=== PATIENT | female | born 1985 | race Caucasian/White ===

== ENCOUNTER 2022-08-20 09:18 | Outpatient (CLI) | payer BC, SELFPAY ==
--- NOTE | ~2022-08-20 | US_ITS ---
EXAMINATION: US OB <= 14 weeks fetus DATE: 08/20/2022 09:38 INDICATION: with inconclusive viability. TECHNIQUE: Real-time transabdominal pelvic ultrasound was performed. COMPARISON: None. FINDINGS: The uterus measures 11.9 x 6.8 x 8.9 cm. There is an intrauterine gestational sac. A yolk sac is iden tified. The crown rump length measures 4.2 cm, which correlates with an estimated gestational age of 11 weeks and 1 day(s) (+/-) 1 week(s) and 0 day(s). heart motion is identified measuring 169 beats per minute (bpm) by M-mode Doppler. There is a small subchorionic hematoma. The right ovar y measures 3.3 x 1.6 x 2.7 cm. The left ovary measures 3.5 x 2.0 x 2.9 cm. There is no free fluid in the pelvis. IMPRESSION: 1. Single living intrauterine gestation with estimated date of delivery of 03/10/2023. 2. Small subchorionic hematoma. Reviewed, dictated and finalized at location A. IMPRESSION: 1. Single living intrauterine gestation with estimated date of delivery of . 2. Small subchorionic hematoma.
== END 2022-08-20 09:19 ==
PROVIDERS: Visit Provider Registered Nurse
DX: O36.80X0 Pregnancy with inconclusive fetal viability, not applicable or unspecified (principal); Z3A.00 Weeks of gestation of pregnancy not specified
CPT/HCPCS: 76801

== ENCOUNTER 2022-12-28 15:01 | Outpatient (RCR) | payer BC, SELFPAY ==
[2022-12-29] MEDS: RHO(D) IMMUNE GLOBULIN 300 MCG/2 ML SYRINGE IM (17:43)
== END 2023-03-28 23:59 | disposition home or self-care (01) ==
LOC: ANHLAB 15:01
PROVIDERS: Visit Provider Obstetrics & Gynecology
DX: Z29.13 Encounter for prophylactic Rho(D) immune globulin (principal); O09.529 Supervision of elderly multigravida, unspecified trimester; O36.0190 Maternal care for anti-D [Rh] antibodies, unspecified trimester, not applicable or unspecified; Z3A.00 Weeks of gestation of pregnancy not specified
CPT/HCPCS: 36415; 85461; 86850; 86900; 86901; 90384; 96372; J2790

== ENCOUNTER 2023-02-22 16:00 | Outpatient (RCR) | payer BC, SELFPAY ==
--- NOTE | ~2023-02-22 | US_ITS ---
EXAMINATION: US OB BPP wo non-stress DATE: 02/22/2023 17:20 INDICATION: Low baseline tracing. Third trimester. TECHNIQUE: Real-time pelvic ultrasound was performed. COMPARISON: None. FINDINGS: There is a single living fetus in vertex presentation. The placenta is anterior. heart rate is 130 beats per minute (bpm). Biophysical profile performed by the technologist: breathing (30 sec sustained breathing in 30 minutes): 2 out of 2 movement (3 gross body movements in 30 minutes): 2 out of 2 tone (one episode of clcmwzz-dvtnkwieh-tayglrm limb movement): 2 out of 2 Amniotic fluid pocket (2 cm): 2 out of 2 Total score: 8 out of 8 IMPRESSION: 1. Single living fetus in vertex presentation. 2. Biophysical profile 8 out of 8. Reviewed, dictated and finalized at location A. SETTER
[2023-02-22 17:15] VITALS: BP 124/79; PULSE 68
== END 2023-05-23 23:59 | disposition home or self-care (01) ==
LOC: ANHOBOP 16:00
PROVIDERS: Visit Provider Obstetrics & Gynecology
DX: O36.8330 Maternal care for abnormalities of the fetal heart rate or rhythm, third trimester, not applicable or unspecified (principal); Z3A.37 37 weeks gestation of pregnancy
CPT/HCPCS: 59025; 76819

== ENCOUNTER 2023-03-08 11:38 | Outpatient (CLI) | payer BC, SELFPAY ==
[2023-03-08 12:07] LABS: Hematocrit 39.7 % (37.0-47.0); Hemoglobin 12.8 g/dL (12.0-15.0); Mean Corpuscular HGB Conc 32.2 g/dl (32-36); Mean Corpuscular Hemoglobin 31.2 pg (26-34); Mean Corpuscular Volume 96.8 fl (80-100); Mean Platelet Volume 10.8 fl (7.4-10.4); Platelet Count Result 159 k/mm3 (150-375); Red Cell Distribution Width 14.8 % (11.5-14.5); White Blood Count 10.3 K/mm3 (4.5-10.0)
[2023-03-09 14:03] LABS: Rapid Plasma Reagin Non-Reactive (NonReactive)
== END 2023-03-08 11:39 | disposition home or self-care (01) ==
LOC: ANHLAB 11:40
PROVIDERS: Visit Provider Obstetrics & Gynecology
DX: Z01.818 Encounter for other preprocedural examination (principal)
CPT/HCPCS: 36415; 85027; 86592; 86850; 86880; 86900; 86901

== ENCOUNTER 2023-03-09 05:29 | Inpatient (IN) | payer BC, SELFPAY ==
[2023-03-09] VITALS (49 sets, daily range): BP systolic 76–117; BP diastolic 14–85; PULSE 47–151; RESP 12–18; TEMP 36.6–37.3; O2SAT 97–100; BMI 34.9; BMI 34.2
--- OUTSIDE RECORDS SUMMARY | 2023-03-09 05:34 | XMS_ITS | Patient Health Record ---
Author Name Unknown Organization [facility] Address [address] [place] [address] Care Team Providers Care Bit Tripoler Name Role Phone Arden Vega DO Primary Care Provider Unavailab elizabeth UNDERWOOD MD, [place] Unavailable REASON FOR REFERRAL No Information SOCIAL HISTORY Sex Assigned At : Social History Observation Description Sex Assigned At Unknown PLAN OF TREATMENT Pending Test Test Name Order Date Colonoscopy 01/05/2019 Insurance Providers Payer Name Payer Address Payer Phone Subscriber Number Group Number Insured Name Patient Relationship to Insured Coverage Start Date Coverage End Date [facility] [address] [place], [place] [id number] Shima Stewart Self - patient is the insured
[2023-03-09] MEDS: LACTATED RINGERS 1,000 ML 125 ML IV CONT (06:24)
--- NOTE | 2023-03-09 06:37 | LDADM ---
This patient, Shima Stewart, was admitted to Labor/Delivery/Recovery 120 on 03/09/23 at 05:29. Plans for c section, pain management and were discussed with patient. Patient/family oriented to hospital policies and general routines including ID bracelet, bed and alarms, visiting hours, pain management, procedures, bathroom and other care routines, personal items, smoking policy, room service/diet and guest tray routines, infant security routines, and visiting hours. Patient/Family are encouraged to report perceived risks to care and to ask questions if they do not understand what they are told or what they should do. See OBIX for further documentation.
--- NOTE | 2023-03-09 07:13 | P.HP_ITS ---
Exam Const: General: no acute distress Eyes: General: appearance normal, both eyes and all related structures Resp: Effort & Inspection: normal respiratory effort Cardio: Rate: regular rate GI: Other: Gravid no fundal tenderness no right upper quadrant pain Skin: General skin exam: no rashes or lesions noted Neuro: Cognition (Neuro): normal cognition Extrem: General: normal to inspection Psych: Mental Status: mental status grossly normal Assessment and Plan Assessment and plan (1) Previous section: Code(s): Z98.891 - History of uterine scar from previous surgery Status: Acute Assessment and Plan: Admit. Will proceed with repeat section. H&P: HPI History of Present Illness Date/Time: 03/09/23 07:13 Chief Complaint: Repeat cesearean section Narrative: She is a at 39 weeks admitted for repeat section. course significant for prior and prior and she has opted for repeat section. She has been counseled regarding risk benefits of DELMA versus repeat seciton. Labs reviewed. GBS positive. Review of Systems Review of Systems: All systems reviewed & are unremarkable except as noted in HPI and below Constitutional: Constitutional: Reports no additional constitutional complaints and Denies headache(s) Eyes: Eyes: Denies spots in vision ENT: Reports system reviewed and no additional complaints, except as documented and Denies headache(s) Cardiovascular: Cardiovascular: Denies chest pain and Denies dyspnea Respiratory: Respiratory: Denies dyspnea Gastrointestinal: Gastrointestinal: Reports no additional gastrointestinal complaints Genitourinary: Genitourinary: Reports amenorrhea Musculoskeletal: Musculoskeletal: Reports no additional musculoskeletal complaints Integumentary/Breasts: Skin/Breast: Denies breast mass and Denies rash Neurologic: Denies headache(s) Psychiatric: Psychiatric: Reports no additional psychiatric complaints [facility] Past Medical History Medical History Advanced maternal age in multigravida Asthma (vaginal after ) Surgical History Surgical History (Updated 03/09/23 @ 07:18 by Abraham Desir MD) History of placement of ear tubes Previous section Family History Family History Father Carcinoma of colon Grandparent Family history of malignant neoplasm of breast Mother A-fib Social History Social History Smoking status: Never smoker Second hand tobacco smoke exposure: No Alcohol intake: current Substance use: never Substance use type: does not use Do You Feel Safe in your Home?: Yes Lack of Transportation: No Lack of Food: Never True Current Housing: I Have Housing Concerned About Future Housing: No Difficulty Paying Gas/Electric Bills: No Difficulty Paying for Meds: No Currently Unemployed: No Education: Master's Degree or Higher Difficulty w/ Childcare or Family Care: No Living arrangements: with family Occupation/Education: occupation Gender identity (if verbalized by the patient): Female Sexual Orientation (if Verbalized by the Patient):
--- NOTE | 2023-03-09 07:13 | PM.IMHP ---
H&P: HPI History of Present Illness Date/Time: 03/09/23 07:13 Chief Complaint: Repeat cesearean section Narrative: She is a at 39 weeks admitted for repeat section. course significant for prior and prior and she has opted for repeat section. She has been counseled regarding risk benefits of DELMA versus repeat seciton. Labs reviewed. GBS positive. Review of Systems Review of Systems: All systems reviewed & are unremarkable except as noted in HPI and below Constitutional: Constitutional: Reports no additional constitutional complaints and Denies headache(s) Eyes: Eyes: Denies spots in vision ENT: Reports system reviewed and no additional complaints, except as documented and Denies headache(s) Cardiovascular: Cardiovascular: Denies chest pain and Denies dyspnea Respiratory: Respiratory: Denies dyspnea Gastrointestinal: Gastrointestinal: Reports no additional gastrointestinal complaints Genitourinary: Genitourinary: Reports amenorrhea Musculoskeletal: Musculoskeletal: Reports no additional musculoskeletal complaints Integumentary/Breasts: Skin/Breast: Denies breast mass and Denies rash Neurologic: Denies headache(s) Psychiatric: Psychiatric: Reports no additional psychiatric complaints PMF Past Medical History Medical History Advanced maternal age in multigravida Asthma (vaginal after ) Surgical History Surgical History (Updated 03/09/23 @ 07:18 by Abraham Desir MD) History of placement of ear tubes Previous section Family History Family History Father Carcinoma of colon Grandparent Family history of malignant neoplasm of breast Mother A-fib Social History Social History Smoking status: Never smoker Second hand tobacco smoke exposure: No Alcohol intake: current Substance use: never Substance use type: does not use Do You Feel Safe in your Home?: Yes Lack of Transportation: No Lack of Food: Never True Current Housing: I Have Housing Concerned About Future Housing: No Difficulty Paying Gas/Electric Bills: No Difficulty Paying for Meds: No Currently Unemployed: No Education: Master's Degree or Higher Difficulty w/ Childcare or Family Care: No Living arrangements: with family Occupation/Education: occupation Gender identity (if verbalized by the patient): Female Sexual Orientation (if Verbalized by the Patient): Straight or Heterosexual Spiritual care concerns: No Meds Home Medications and Allergies Home Medications Medication Instructions Recorded Confirmed Type albuterol sulfate 90 mcg/actuation 1 inh inhalation Q4H PRN shortness 08/18/22 03/09/23 Rx aerosol inhaler of breath or wheezing #6.7 grams prenat.vits,vida,ykm-lqro-bcoza 1 tablet PO DAILY 08/18/22 02/14/23 History aspirin 81 mg tablet,delayed 81 mg PO DAILY 01/25/23 02/14/23 History release (Adult Low Dose Aspirin) cholecalciferol (vitamin D3) 50 50 mcg PO DAILY 01/25/23 02/14/23 History mcg (2,000 unit) capsule iron,carbonyl 100 mg-vitamin C 250 1 tablet PO DAILY 01/25/23 02/14/23 History mg tablet Allergies Allergy/AdvReac Type Severity Reaction Status Date / Time Sulfa (Sulfonamide Allergy Intermediate Hives / Verified 03/09/23 06:28 Antibiotics) Red Face cefaclor Allergy Unknown Unknown Verified 03/09/23 06:28 Cephalosporins Allergy Unknown Unknown Verified 03/09/23 06:28 erythromycin base Allergy Unknown Unknown Verified 03/09/23 06:28 sulfanilamide Allergy Unknown Unknown Verified 03/09/23 06:28 sulfisoxazole Allergy Unknown Unknown Verified 03/09/23 06:28 Vital Signs Vital Signs - 24 hr 03/09/23 06:21 03/09/23 06:33 Pulse Rate 76 Blood Pressure 117/85 Oxygen Delivery Room Air Exam Const:
--- NOTE | 2023-03-09 07:17 | WPDANESEPPF ---
Anes - Initial Pre Proc Eval Procedure: Operation Date: 03/09/23 07:30 Proposed Procedures p Repeat Section - Abraham Desir MD Date/Time: 03/09/23 07:17 Surgeon: Abraham Desir MD Pre Op Diagnosis: C/S Patient Data Age: 37 Gender: F Height: 1.64 m Weight: 92 kg Last Vital Signs Pulse 76 03/09/23 06:21 BP 117/85 03/09/23 06:21 O2 Del Method Room Air 03/09/23 06:33 Allergies Allergy/AdvReac Type Severity Reaction Status Date / Time Sulfa (Sulfonamide Allergy Intermediate Hives / Verified 03/09/23 06:28 Antibiotics) Red Face cefaclor Allergy Unknown Unknown Verified 03/09/23 06:28 Cephalosporins Allergy Unknown Unknown Verified 03/09/23 06:28 erythromycin base Allergy Unknown Unknown Verified 03/09/23 06:28 sulfanilamide Allergy Unknown Unknown Verified 03/09/23 06:28 sulfisoxazole Allergy Unknown Unknown Verified 03/09/23 06:28 Home Medications Medication Instructions Recorded Confirmed Type albuterol sulfate 90 mcg/actuation 1 inh inhalation Q4H PRN shortness 08/18/22 03/09/23 Rx aerosol inhaler of breath or wheezing #6.7 grams prenat.vits,vida,qsz-hzad-uiyga 1 tablet PO DAILY 08/18/22 02/14/23 History aspirin 81 mg tablet,delayed 81 mg PO DAILY 01/25/23 02/14/23 History release (Adult Low Dose Aspirin) cholecalciferol (vitamin D3) 50 50 mcg PO DAILY 01/25/23 02/14/23 History mcg (2,000 unit) capsule iron,carbonyl 100 mg-vitamin C 250 1 tablet PO DAILY 01/25/23 02/14/23 History mg tablet Patient hx anesthesia problems: none Family hx anesthesia problems: none Results Review: All pre-operative results and documents have been reviewed as part of the pre-operative evaluation. [facility] Past Medical History Medical History Advanced maternal age in multigravida Asthma (vaginal after ) Surgical History Surgical History History of placement of ear tubes Previous section Family History Family History Father Carcinoma of colon Grandparent Family history of malignant neoplasm of breast Mother A-fib Social History Social History Smoking status: Never smoker Second hand tobacco smoke exposure: No Alcohol intake: current Substance use: never Substance use type: does not use Do You Feel Safe in your Home?: Yes Lack of Transportation: No Lack of Food: Never True Current Housing: I Have Housing Concerned About Future Housing: No Difficulty Paying Gas/Electric Bills: No Difficulty Paying for Meds: No Currently Unemployed: No Education: Master's Degree or Higher Difficulty w/ Childcare or Family Care: No Living arrangements: with family Occupation/Education: occupation Gender identity (if verbalized by the patient): Female Sexual Orientation (if Verbalized by the Patient): Straight or Heterosexual Spiritual care concerns: No Anes - Eval Final PreProcedure Day of Procedure 03/09/23 07:17 Patient weight: obese Heart: regular rate and rhythm Lungs: clear to auscultation Airway: Mallampati scale class II Neurological: alert and oriented Last oral intake: >/= 8 hours ASA classification: II Emergent: no Anesthetic plan: proceed Anesthesia type and monitoring: regional spinal and standard monitoring Results Review: All pre-operative results and documents have been reviewed as part of the pre-operative evaluation. Informed Consent: The patient's anesthetic plan and its attendant risks and benefits were discussed with the patient/family/POA. Questions were solicited and answers provided to the satisfaction of the patient/family/POA.
[2023-03-09] MEDS: CLINDAMYCIN 900 MG/D5W 50 ML 900 MG/50 ML PIGGYBACK 50 MG IVPB (07:18)
--- NOTE | 2023-03-09 07:19 | WPDHPUPDATE1 ---
History and Physical Update Update Date/Time: 03/09/23 07:19 History and Physical has been reviewed, including an updated exam of the patient. There are NO changes in the patient's condition. Risks, benefits, and alternatives have been discussed and questions answered. Patient agrees to proceed with procedure.
[2023-03-09] MEDS: GENTAMICIN SULFATE INJ 460 MG in DEXTROSE 5% 100 ML 100 MG IVPB (07:44)
--- NOTE | 2023-03-09 09:01 | W.PM.OBCSD ---
OB - Delivery Note Procedure Delivery date: 03/09/23 Pre-op diagnosis: Previous Delivery Post-op Diagnosis: Same Delivery monitor: External FHT Procedure Performed: Repeat Surgeon: Abraham Desir MD Anesthesia type: Spinal Description of Procedure/Findings: Findings: Male infant 8lb 7oz normal fallopian tubes and ovaries, in OT position, vacuum assisted After informed consent, risks and benefits of the procedure was discussed with the patient. The patient was taken to the operating room where she was placed in the dorsal lithotomy position with leftward tilt. After the prior placed epidural anesthesia was found to be adequate, she was then prepped and draped in the usual sterile fashion. A Pfannenstiel skin incision was made along prior scar incision with a scalpel and carried through to the underlying layer of fascia. The scar tissue was dissected. The fascia was then nicked in the midline, extending bilaterally. The fascia was dissected off the rectus muscles using cautery, superiorly and inferiorly. The rectus muscles were in the midline, and peritoneum was identified and entered bluntly. The pelvic organs were visualized. The bladder blade was then inserted. The vesicouterine peritoneum was identified and entered sharply with Metzenbaum scissors and extended bilaterally and then the bladder flap was created digitally. The low transverse uterine incision was then made with the scalpel and extended with bilateral index fingers in a crescent-shaped fashion. There was a large amount of clear amniotic fluid. The head was in the OT position and high, needed the vacuum to assist with delivery of head, once head delivered then vacuum released, delivered, the nose and mouth were suctioned with the bulb. the rest of the infant was delivered. The cord was clamped twice and cut. The was then handed off to the awaiting pediatric staff. The placenta was then delivered manually. The uterine cavity was sponge curretted. Good uterine tone. The uterus was then exteriorized. The uterine incision was then closed with 0 vicryl in a running locked fashion. Hemostasis noted. A second layer of 0 vicryl was used in an imbricating fashion. Hemostasis noted, Cul de sac irrigated. The uterus was then returned to the abdomen. Bilateral gutters were cleared off all clots and debris. The uterine incision was noted to be hemostatic. Interceed placed on uterine incision and vertically on front of uterus. The muscle bellies were inspected, there was an area on the right muscle bellies that require cautery and then hemostasis noted. The subfascial layer was noted to be hemostatic, and the fascia was closed with 0 Vicryl in a running fashion. The subcutaneous layer was then closed with 3-0 Vicryl in a subcutaneous fashion. The skin was closed with Ensorb. Skin dermabond applied at incision. All instruments, needle, and lap counts were correct x3. The patient was taken to the recovery room in stable condition. Specimen: No Estimated Blood Loss: 940 Drains: No Packing: No Pathology: None sent Complications: No immediate complications Condition: Stable [place] Baby Date of : 03/09/23 Weeks of gestation at delivery: 39 Infant gender: Male Weight (pounds): 8 Weight (ounces): 7 presentation: vertex position: Right Occiput Transverse Placenta delivery description: Manual Removal Cord Vessel Description: 3 Vessels score one minute: 8 score five minutes: 9 AMG Delivery Billing Delivery Delivery: Delivery Charge
--- NOTE | 2023-03-09 09:15 | PM.OBDSVD ---
DS: Admitting Diagnosis Discharge Date 03/12/23 Admitting Diagnosis Elective repeat section. DS: Discharge Diagnosis Discharge Diagnosis (1) Delivery by section: Status: Acute OB - DS: Summary Hospital Course Hospital Course: She was admitted for elective repeat section. She had an uncomplicated . She did well . She had adequate pain control and was tolerating regular diet. She was discharged to home on Post day 3. OB Procedures : Ultrasound OB Procedures Intrapartum: OB Procedures: : None Peripartum Data Infant Delivery Method: Natural Vaginal Procedures: Procedures Operation Date: 03/09/23 07:30 <No data on this case meets the specified criteria> complications: none Status at Discharge Functional status at discharge: independent ambulation Time Spent with Patient Time attestation: Total time spent providing and/or coordinating discharge services: Exam Const: General: cooperative Orientation/consciousness: oriented to person, oriented to place and oriented to time HENMT: Face/Nose/Sinus: Normal external nose present Eyes: General: appearance normal, both eyes and all related structures Resp: Effort & Inspection: normal respiratory effort GI: Inspection: normal to inspection Skin: General skin exam: normal color Neuro: General: oriented to person, oriented to place and oriented to time Extrem: General: normal to inspection and no calf tenderness Psych: Appearance: grossly normal Mental Status: mental status grossly normal Discharge Plan Discharge Attending physician on discharge: Daksha Gil Consulting providers: Lars Martel; Clyde Cohen; Denise Cespedes Discharging Clinician: Daksha Gil Anticipated Discharge Date/Time: 03/12/23 12:00 Patient Disposition: Home, Self-Care Activity: may shower, may drive after 2 weeks and pelvic rest Diet: regular Discharge Instructions: Education: Mom and Baby Guide Given to: Mother Follow-Up: Call your delivering provider's office for an appointment to be seen in: 1 Week Mom and baby should come to the [facility] for the follow-up appointment. Appointment Date/Time: March 14, 2023 at 9:00 am What to expect at your follow-up visit: Blood Pressure Check Call [phone] if you are unable to keep your appointment time. BREAST CARE: * Wear a snug supportive bra. * For engorgement discomfort: Breast Feeding: * Apply warm moist washcloths * Express milk as needed to relieve engorgement * Wear loose clothing Bottle Feeding: * May apply ice packs * For sore nipples: * Identify correct latch-on * Apply warm moist washcloths before and after nursing * Air dry nipples after nursing * May apply Lansinoh cream to nipples ABDOMINAL INCISION: (if applicable) * Allow incision to air dry * Do NOT use lotions for powders on your incision * When showering, allow soap and water to run over the incision, but do not wash incision PERINEAL CARE: * Until bleeding stops, use your anel bottle after urinating * Change your pad frequently throughout the day * You may take sitz baths several times a day (fill your bathtub with warm water and soak for 20 minutes.) Do NOT bathe in the water * No tub baths until seen by your physician - You may shower ACTIVITY: * Rest as much as possible. * Do not exercise or lift anything heavier than your baby (such as laundry or other children.) * Avoid stairs or driving as much as possible. * Do not put anything into the vagina. No douching, tampons, or sexual activity until seen by physician. NOTIFY PHYSICIAN IF YOU HAVE ANY QUESTIONS OR IF ANY OF THE FOLLOWING SYMPTOMS OCCUR: * If your incision becomes red, swollen, or more painful than what you have experienced in the hosp
[2023-03-09] MEDS: KETOROLAC 30 MG/ML VIAL (*BKC) IV PUSH ×2 (09:40→13:35)
[2023-03-09] MEDS: OXYTOCIN 30 UNITS/NS 500 ML 30 UNITS/500 ML BAG 125 UNITS IV CONT (09:43)
[2023-03-09] MEDS: SCOPOLAMINE 1 MG PATCH 1 PATCH TRANSDERM (15:00)
[2023-03-09] MEDS: METOCLOPRAMIDE HCL INJ 10 MG/2 ML VIAL IV PUSH (15:00)
[2023-03-09] MEDS: LIDOCAINE 5% PATCH 1 PATCH TRANSDERM (15:00)
[2023-03-10] MEDS: HYDROcodone/acetaminophen (*CRX) 5-325 MG TABLET 1 TAB PO ×3 (02:33→19:58)
[2023-03-10] MEDS: IBUPROFEN 600 MG TABLET PO ×4 (02:33→19:58)
[2023-03-10 04:30] VITALS: BP 87/44; PULSE 49; RESP 16; TEMP 36.4
[2023-03-10 06:27] LABS: Basophils Absolute Auto 0.1 K/mm3 (0.0-0.1); Basophils Percent Auto 0.4 % (0.2-1.2); Eosinophils Absolute Auto 0.2 K/mm3 (0-0.3); Eosinophils Percent Auto 1.5 % (0-4.4); Hematocrit 32.9 % (37.0-47.0); Hemoglobin 10.5 g/dL (12.0-15.0); Immature Granulocyte Absolute 0.08 K/mm3 (0.00-0.031); Immature Granulocyte Percent A 0.7 % (0-0.5); Lymphocytes Absolute Auto 1.83 K/mm3 (0.9-3.2); Lymphocytes Percent Auto 15.6 % (18.3-44.2); Mean Corpuscular HGB Conc 31.9 g/dl (32-36); Mean Corpuscular Hemoglobin 31.5 pg (26-34); Mean Corpuscular Volume 98.8 fl (80-100); Mean Platelet Volume 11.6 fl (7.4-10.4); Monocytes Absolute Auto 0.9 K/mm3 (0.1-0.6); Monocytes Percent Auto 7.8 % (2.6-8.5); Neutrophils Absolute Auto 8.7 K/mm3 (1.3-6.7); Platelet Count Result 149 k/mm3 (150-375); Red Blood Count 3.33 M/mm3 (4.2-5.4); Red Cell Distribution Width 14.9 % (11.5-14.5); White Blood Count 11.7 K/mm3 (4.5-10.0)
--- NOTE | 2023-03-10 07:47 | PM.OBPNVD ---
OB - PN: Subj Subjective Date/time seen: 03/10/23 07:47 Patient comments: no complaints, pain well controlled, tolerating diet and flatus present OB - PN: Obj Data Labs 03/10/23 04:39 Labs: Laboratory Results - last 24 hr 03/10/23 04:39 WBC 11.7 H RBC 3.33 L Hgb 10.5 L Hct 32.9 L MCV 98.8 MCH 31.5 MCHC 31.9 L RDW 14.9 H Plt Count 149 L MPV 11.6 H Immature Gran % (Auto) 0.7 H Neut % (Auto) 74.0 H Lymph % (Auto) 15.6 L Delta % (Auto) 7.8 Eos % (Auto) 1.5 Baso % (Auto) 0.4 Lymph # (Auto) 1.83 Delta # (Auto) 0.9 H Eos # (Auto) 0.2 Baso # (Auto) 0.1 Abs Immat Gran (auto) 0.08 H Absolute Neuts (auto) 8.7 H Absolute Nucleated RBC 0.0 Nucleated RBC % 0.0 OB - PN A/P Plan day: 1 Plan: routine care Comments: patient doing well H/H stable afebrile, VSS incision C/D/I estrada removed, voiding spontaneously continue routine post op care pt desires infant circumcision. risks, benefits, alternatives discussed. Plan for infant circumcision this morning. Time Spent With Patient Time: Total time spent is greater than 50% in coordination of care (as documented) at patient's floor/unit and/or counseling patient: Time with patient: less than 15 minutes Review of Systems Constitutional: Constitutional: Reports no additional constitutional complaints Cardiovascular: Cardiovascular: Reports no additional cardiovascular complaints Respiratory: Respiratory: Reports no additional respiratory complaints Gastrointestinal: Gastrointestinal: Reports no additional gastrointestinal complaints Genitourinary: Genitourinary: Reports no additional female genitourinary complaints Exam Const: General: comfortable and no acute distress Resp: Effort & Inspection: normal respiratory effort Auscultation: clear to auscultation bilaterally Cardio: Rate: regular rate GI: GI Palp: Yes Soft to palpation, Yes Tenderness to palpation present (GI) (around incision ) and No Guarding due to palpation present (GI) Auscultation: normal bowel sounds Other: incision C/D/I, covered with Dermabond Psych: Appearance: grossly normal Mental Status: mental status grossly normal Affect: normal affect
[2023-03-10 08:21] VITALS: BP 87/44; PULSE 51; RESP 18; TEMP 36.4; O2SAT 98
[2023-03-10] MEDS: SIMETHICONE 80 MG TAB.CHEW PO ×3 (09:00→23:50)
[2023-03-10] MEDS: MULTIVIT/MIN/PREN/FOL AC/IRON TABLET 1 TAB PO (09:00)
[2023-03-10] MEDS: DOCUSATE SODIUM 100 MG CAPSULE PO ×2 (09:00→17:00)
[2023-03-10 09:50] VITALS: BP 100/68
--- NOTE | 2023-03-10 09:59 | WPDANLDNPN2 ---
Anes-Prog Note L&D-Neuraxial Date/Time: 03/10/23 09:59 Neuraxial medications: intrathecal PF morphine Opiod-related complaints: pruritis mild, no treatment Patient feedback: Patient satisfied with post-operative pain management.
--- NOTE | 2023-03-10 10:00 | WPDANLDPN2 ---
Anes-Prog Note L&D Date/Time: 03/10/23 10:00 Comfortable throughout: section Neuraxial method: spinal Epidural/Spinal procedure site: clean & non-tender Neuro status: Neuro function grossly intact. Cardiovascular status: normal Respiratory status: normal Airway patency: baseline Mental status: baseline Post-Op hydration status: normal Vital Signs: Last Vital Signs Temp 36.4 C 03/10/23 08:21 Pulse 51 L 03/10/23 08:21 Resp 18 03/10/23 08:21 BP 100/68 03/10/23 09:50 Pulse Ox 98 03/10/23 08:21 O2 Del Method Room Air 03/09/23 17:06 Pain score (VAS): 3/10 I/O: Intake & Output 03/09/23 03/10/23 03/10/23 23:59 07:59 15:59 Intake Total 500 500 Output Total 1050 1500 900 Balance -550 -1000 -900 Post-procedural complaints: none Patient feedback: Patient satisfied with anesthetic care.
--- NOTE | 2023-03-10 10:31 | PC.NURSE ---
[id number] Introductions were made, then consulted with patient to assess needs related to . Mother led the conversation with her?plans to feed?her infant, the?experience so far along with her history. Mother had a crease injury on the right nipple and a pinched injury at the top of the left nipple. Encouraged understanding of the benefits of skin to skin (demonstrating unwrapping infant and placing upright on her chest), stimulating with massage touch, changing positions to encourage wakefulness, how to watch for early feeding cues, responsive feeding, feeding on demand (aiming for 8-12 times in 24 hours, about every 2-3 hours), milk production, building/maintaining a milk supply, duration of feeding, signs of adequate intake/output and how to record on the feeding sheet. Infant is sleepy and reluctant to wake up after the circumcision and oral medication. Mother works well with her with encouragement and education. LC was able to stimulate, burp and change positions of to stimulate for wakefulness to breastfeed. Reviewed positioning and ear, shoulder, hip alignment, supporting the breast to facilitate a deep latch, asymmetrical latch (off-center), leading with the chin with a big, open, wide gape and body close to mother. latched optimally to the left breast in football position. Education given to the mother of how to visualize the suckling (with good rocking jaw motion), swallows (dropping of the lower jaw) and how to listen for drinking at the breast (the ka sound). Infant was able to maintain latch without pain to mother protecting the nipple with optimal positioning and latching. self-detached without misshaping the nipple. Reviewed comfort measures of healing with a warm, wet washcloth to rinse breast, then leave open to air-dry, good handwashing when or touching the breast/nipples to prevent infection. Mother voiced understanding of skin to skin, stimulating with massage touch, responsive feedings, hand expressed colostrum, talking to to encourage if it has been 2 -2.5 hours since the start of the last , to call if infant does not latch, or if there is discomfort with . Resources used for education were facilitated with the mom and baby guide. Inpatient/outpatient resources provided with name written on the communication board. Parents voiced understanding of information, demonstrated learning and will call if there is a request for assistance. Reported to the Primary RN.
--- NOTE | 2023-03-10 14:02 | PC.NURSE ---
[id number] Consulted with patient to assess needs related to after requested. Discussed with mother her successes, concerns and any questions she has. We reviewed working with the infant, supporting breast, protecting her nipples with an optimal deep latch, good positioning, and good hand washing. Encouraged understanding the benefits of skin to skin, responding to feeding cues, frequencies of feeding 8-12 times in 24 hours (approximately 2-3 hours), duration of feedings, milk production, intake/output feeding sheet and signs of adequate intake encouraging swallowing at the breast. Reviewed positioning and alignment, supporting breast, off-centered (asymmetrical latch) and leading with the chin with big, open, wide gape. Infant latched optimally to the right breast in football position. Mother states the latch is slightly pinchy with a rating of 2 on scale 0-10. has nice rounded cheek line, flanged lips, good rocking jaw motion, wiggling in front of the ears, and swallowing at times. Education given to the mother of how to visualize the suckling (with good rocking jaw motion) swallows (dropping of the lower jaw) and how to listen for drinking at the breast (the ka sound). Mother was shown detaching infant from the breast after 10 minutes related to the pinching discomfort. The nipple was slightly misshaped with slanting. Recommended to mother to rotate breast and positioning while working with on the optimal latch. placed [id number], then after feeding cues were observed infant was effectively latched to the left breast using the football positioning. The was able to maintain latch without discomfort to mother and demonstrated swallowing. Nipple care reviewed with optimal latch, good positioning and using clean hands when touching her breast. Resources used to facilitate learning were used from the [visual handouts/ tool/mom and baby guide]. Mother voiced understanding of the education shared, to call for assistance if the infant does not latch or if there is discomfort with . Reported to the Primary RN.
[2023-03-10] MEDS: RHO(D) IMMUNE GLOBULIN 300 MCG/2 ML SYRINGE IM (14:21)
[2023-03-10] MEDS: LIDOCAINE 5% PATCH 1 PATCH TRANSDERM (14:23)
[2023-03-10 17:22] VITALS: BP 102/72; PULSE 62; RESP 16; O2SAT 100
[2023-03-10 19:40] VITALS: BP 102/55; PULSE 59; RESP 16; TEMP 36.8
[2023-03-10] MEDS: HYDROcodone/acetaminophen (*CRX) 10-325 MG TABLET 1 TAB PO (23:50)
[2023-03-11] MEDS: IBUPROFEN 600 MG TABLET PO ×3 (03:36→20:20)
[2023-03-11] MEDS: HYDROcodone/acetaminophen (*CRX) 10-325 MG TABLET 1 TAB PO ×2 (03:36→16:26)
[2023-03-11] MEDS: SIMETHICONE 80 MG TAB.CHEW PO ×4 (03:36→16:27)
--- NOTE | 2023-03-11 06:44 | P.PNOB_ITS ---
OB - PN: Subj Subjective Date/time seen: 03/11/23 06:44 Narrative: POD#2 Shima reports doing well today. 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 Her pain is better controlled now that she's taking the [place] pain meds now. She is tolerating regular diet, voiding, passing gas, and ambulating without issues. She denies any issues with her incision. She is breast feeding. OB - PN: Obj Data Labs 03/10/23 04:39 Labs: Laboratory Results - last 24 hr 03/10/23 04:39 Blood Type O Negative Antibody Screen TNP Screen Negative Baby's Blood Type A pos Baby's MARI Positive Doses of RhIg Required 1 OB - PN A/P Assessment and Plan (1) Status post repeat low transverse section: Code(s): Z98.891 - History of uterine scar from previous surgery Status: Acute Plan day: 2 Plan: routine care and discharge home (tomorrow) Comments: - Pain control; continue taking the norco 5mg at least every few hours - hydration/ambulation - continue breast feeding; will give nipple gel pads to help with pain Time Spent With Patient Time: Total time spent is greater than 50% in coordination of care (as documented) at patient's floor/unit and/or counseling patient: Review of Systems Constitutional: Constitutional: Denies chills, Denies fever(s) and Denies headache(s) Eyes: Eyes: Denies change in vision ENT: Denies dizziness and Denies headache(s) Cardiovascular: Cardiovascular: Denies chest pain, Denies palpitations and Denies dyspnea Respiratory: Respiratory: Denies cough and Denies dyspnea Gastrointestinal: Gastrointestinal: Denies nausea and Denies vomiting Genitourinary: Comments: normal bleeding Neurologic: Denies dizziness and Denies headache(s) Endocrine: Endocrine: Denies palpitations Exam Const: General: cooperative, comfortable and no acute distress Orientation/consciousness: patient oriented x3 Resp: Effort & Inspection: normal respiratory effort Auscultation: clear to auscultation bilaterally Cardio: Rate: regular rate GI: Inspection: non-distended and incision (covered with clean dressing) GI Palp: Yes abdominal tenderness (appropriate) and Yes Soft to palpation Auscultation: normal bowel sounds : Other: fundus firm Skin: General skin exam: normal color Neuro: General: patient oriented x3 Extrem: General: normal to inspection Psych: Appearance: grossly normal Affect: normal affect Attitude: cooperative
[2023-03-11] MEDS: MULTIVIT/MIN/PREN/FOL AC/IRON TABLET 1 TAB PO (08:16)
[2023-03-11] MEDS: DOCUSATE SODIUM 100 MG CAPSULE PO ×2 (08:16→16:27)
[2023-03-11] MEDS: LANOLIN (LANSINOH) 7.5 GM CREAM 1 APPLIC TOPICAL (08:17)
[2023-03-11 08:19] VITALS: BP 98/58; PULSE 57; RESP 20; TEMP 37.1; O2SAT 97
[2023-03-11] MEDS: HYDROcodone/acetaminophen (*CRX) 5-325 MG TABLET 1 TAB PO ×3 (08:30→20:20)
--- NOTE | 2023-03-11 09:09 | PC.NURSE ---
Patient instructed on viewing the discharge video Mother & Baby Care, The First Two Weeks . Patient was given the opportunity and encouraged to ask questions. Patient verbalized understanding of information shared and has been given the mother/baby guide for home reference.
[2023-03-11] MEDS: LIDOCAINE 5% PATCH 1 PATCH TRANSDERM (11:35)
--- NOTE | 2023-03-11 14:33 | PC.NURSE ---
[id number] Consulted with patient to assess needs related to . Discussed with mother her successes, concerns and any questions she has. Infant has 9% weight loss and mother states her milk is coming in. Breast feel firm and more milk is leaking today than yesterday. We reviewed working with the , supporting breast, protecting her nipples with an optimal deep latch, good positioning, and good hand washing. Encouraged understanding the benefits of skin to skin, responding to feeding cues, frequencies of feeding 8-12 times in 24 hours (approximately 2-3 hours), duration of feedings, milk production, intake/output feeding sheet and signs of adequate intake encouraging swallowing at the breast. Reviewed positioning and alignment, supporting breast, off-centered (asymmetrical latch) and leading with the chin with big, open, wide gape. Infant latched optimally to the left and right breast in football position demonstrating swallowing frequently. Education given to the mother of how to visualize the suckling (with good rocking jaw motion) swallows (dropping of the lower jaw) and how to listen for drinking at the breast (the ka sound). The was able to maintain latch without discomfort to mother. Nipple care reviewed with optimal latch, good positioning and using clean hands when touching her breast. Encouraged mother to offer the breast frequently every 2-2.5 hours along with [id number] to improve warmth and decrease stress for baby. Mother voiced understanding of the education shared, to call for assistance if the infant does not latch, demonstrates learning or if there is discomfort with . Reported to the Primary RN.
[2023-03-11 20:20] VITALS: BP 119/77; PULSE 60; RESP 18; TEMP 36.4; O2SAT 98
[2023-03-12] MEDS: HYDROcodone/acetaminophen (*CRX) 10-325 MG TABLET 1 TAB PO ×2 (00:12→09:18)
[2023-03-12] MEDS: IBUPROFEN 600 MG TABLET PO ×2 (05:25→12:10)
[2023-03-12] MEDS: HYDROcodone/acetaminophen (*CRX) 5-325 MG TABLET 1 TAB PO ×2 (05:25→12:11)
--- NOTE | 2023-03-12 07:30 | PC.NURSE ---
PT introductions made and plan of care discussed per post , pain management, c section, daily care activities. breast feeding and pending discharge to home. PT and spouse both received instructions per one to one discussion, demonstrations, and mom baby care guide this shift. No barriers to learning identified at this time. PT verbalized understanding of such care.
--- NOTE | 2023-03-12 08:03 | PM.OBDSVD ---
DS: Admitting Diagnosis Discharge Date 03/12/23 Admitting Diagnosis previous section DS: Discharge Diagnosis Discharge Diagnosis (1) Status post repeat low transverse section: Code(s): Z98.891 - History of uterine scar from previous surgery Status: Acute OB - DS: Summary OB Procedures : Ultrasound OB Procedures Intrapartum: low cervical, transverse OB Procedures: : RHo (D) lg Peripartum Data Delivery Method: Section Procedures: Procedures Operation Date: 03/09/23 07:30 Actual Procedure Side Surgeon p Repeat Section Abraham Desir MD complications: none 1: Gender: Male Disposition of : home Status at Discharge Functional status at discharge: independent ambulation Overall status at discharge: patient is back to baseline Time Spent with Patient Time attestation: Total time spent providing and/or coordinating discharge services: Time spent: Less than 30 minutes Exam Const: General: cooperative, comfortable and no acute distress Orientation/consciousness: patient oriented x3 Resp: Effort & Inspection: normal respiratory effort Auscultation: clear to auscultation bilaterally Cardio: Rate: regular rate GI: Inspection: non-distended and incision GI Palp: No abdominal tenderness and Yes Soft to palpation Auscultation: normal bowel sounds : Other: fundus firm Skin: General skin exam: normal color Neuro: General: patient oriented x3 Extrem: General: normal to inspection Psych: Appearance: grossly normal Affect: normal affect Attitude: cooperative DS: Data Data Completed and Pending Labs on day of discharge: Labs from last 24 hours 03/10/23 04:39 Blood Type O Negative Antibody Screen TNP Screen Negative Baby's Blood Type A pos Baby's MARI Positive Doses of RhIg Required 1 Discharge Plan Discharge Attending physician on discharge: Daksha Gil Discharging Clinician: Daksha Gil Anticipated Discharge Date/Time: 03/12/23 12:00 Patient Disposition: Home, Self-Care Activity: may shower, may drive after 2 weeks and pelvic rest Diet: regular Patient Instructions: (DC) Stand Alone Forms: General Discharge Information Follow-up/Referrals: Abraham Desir MD [Physician] - 4 Weeks Discharge Medications: New hydrocodone-acetaminophen 5-325 mg Tablet 1 tablet PO Q3H PRN (Reason: Moderate Pain (4-6)) Qty: 24 0RF docusate sodium 100 mg Capsule 100 mg PO BID Qty: 100 0RF ibuprofen 600 mg Tablet 600 mg PO Q6H PRN (Reason: Cramping) Qty: 40 0RF acetaminophen 325 mg Tablet 650 mg PO Q6H PRN (Reason: Mild Pain (1-3)) Qty: 40 0RF Continued prenat.vits,vida,[id number] Tablet 1 tablet PO DAILY albuterol sulfate 90 mcg/actuation HFA aerosol inhaler 1 inh inhalation Q4H PRN (Reason: shortness of breath or wheezing) Qty: 6.7 0RF cholecalciferol (vitamin D3) 50 mcg (2,000 unit) capsule 50 mcg PO DAILY iron,carbonyl-vitamin C 100-250 mg tablet 1 tablet PO DAILY Discontinued aspirin [Adult Low Dose Aspirin] 81 mg tablet,delayed release (DR/EC) 81 mg PO DAILY Date of admission: 03/09/23 05:29 Primary Care Provider: Arden Vega Admitting Provider: Abraham Desir Attending physician on admission: Abraham Desir Condition: Stable
[2023-03-12 09:15] VITALS: BP 118/72; PULSE 64; RESP 18; TEMP 37.2; O2SAT 100
[2023-03-12] MEDS: DOCUSATE SODIUM 100 MG CAPSULE PO (09:19)
[2023-03-12] MEDS: MULTIVIT/MIN/PREN/FOL AC/IRON TABLET 1 TAB PO (09:19)
[2023-03-12] MEDS: SIMETHICONE 80 MG TAB.CHEW PO (09:19)
[2023-03-12] MEDS: LIDOCAINE 5% PATCH 1 PATCH TRANSDERM (12:12)
--- NOTE | 2023-03-12 12:30 | PC.NURSE ---
Patient was given the opportunity to view the discharge video Mother & Baby Care, The First Two Weeks and to ask questions. Patient declined viewing the video and has been given the mother/baby guide for home reference.
--- NOTE | 2023-03-12 12:50 | PC.NURSE ---
PT discharged to home ambulatory accompanied by spouse and and taken to waiting car. Follow up appts confirmed
[2023-03-14 09:38] VITALS: BP 135/87; PULSE 77; RESP 18; TEMP 36.7; O2SAT 100
== END 2023-03-12 12:50 | disposition home or self-care (01) | DRG 788 ==
LOC: ANHOB2 03-12 11:47 → ANHLDR 03-15 09:13 → ANHOB2 03-15 09:13
PROVIDERS: Admitting Provider Obstetrics & Gynecology; Visit Provider Obstetrics & Gynecology
PROC: 10D00Z1 Extraction of Products of Conception, Low, Open Approach (ICD-10-PCS; CPT 59514; principal; 2023-03-09 07:30)
DX: O34.219 Maternal care for unspecified type scar from previous cesarean delivery (principal); O99.824 Streptococcus B carrier state complicating childbirth; O99.52 Diseases of the respiratory system complicating childbirth; J45.909 Unspecified asthma, uncomplicated; Z3A.39 39 weeks gestation of pregnancy; Z37.0 Single live birth
CPT/HCPCS: 36415; 85025; 85461; 86850; 86900; 86901; 90384; A9270; J1580; J1885; J2274; J2371; J2590; J2765; J2790; J7120